=== PATIENT | female | born 1965 | race Caucasian/White ===

== ENCOUNTER 2022-06-03 13:59 | Inpatient (IN) | payer MEDICARE ==
[~2022-06-03] VITALS: Ht 157.5 cm; Wt 70.3 kg
[2022-06-03 14:45] LABS: HEMOGLOBIN 12.8 gm/dl (12.3-15.3); RED BLOOD COUNT 4.38 M/UL (4.00-5.10)
[2022-06-03 15:07] LABS: BUN/CREATININE RATIO 9 (0-10)
[2022-06-03] MEDS ORDERED: HYDROXYZINE PAM25 MG PO (17:34)
[2022-06-03] MEDS ORDERED: NITROGLYCERIN0.4 MG SL (17:35)
[2022-06-03] MEDS ORDERED: LACTULOSE10 GM/15 M PO (17:35)
[2022-06-03] MEDS ORDERED: TIZANIDINE HCL4 MG PO (17:35)
[2022-06-03] MEDS ORDERED: AMLODIPINE BESY10 MG PO (17:36)
[2022-06-03] MEDS ORDERED: PROTONIX 40 MG40 M1 PO (17:36)
[2022-06-03] MEDS ORDERED: ATORVASTATIN CA40 MG PO (17:36)
[2022-06-03] MEDS ORDERED: SYNTHROID50 MCG PO (17:36)
[2022-06-03] MEDS ORDERED: ASPIRIN EC81 MG PO (17:37)
[2022-06-03] MEDS ORDERED: SERTRALINE HCL50 MG PO (17:37)
[2022-06-04 04:31] LABS: HEMOGLOBIN 11.7 gm/dl (12.3-15.3); RED BLOOD COUNT 4.02 M/UL (4.00-5.10); WHITE BLOOD COUNT 2.8 K/UL (4.5-11.0)
[2022-06-04 04:50] LABS: BUN/CREATININE RATIO 15 (0-10)
[2022-06-04 13:16] LABS: ADENOVIRUS F 40/41 Not Detected (Negative); ASTROVIRUS Not Detected (Negative); CAMPYLOBACTER Not Detected (Negative); CRYPTOSPORIDIUM Not Detected (Negative); E.COLI 0157 Not Detected (Negative); ENTAMOEBA HISTOLYTICA Not Detected (Negative); ENTEROAGGREGATIVE E.COLI (EAEC Not Detected (Negative); ENTEROPATHOGENIC E.COLI (EPEC) Not Detected (Negative); ENTEROTOXIGENIC E.COLI (ETEC) Not Detected (Negative); GIARDIA LAMBLIA Not Detected (Negative); NOROVIRUS GI/GII Not Detected (Negative); PLESIOMONAS SHIGELLOIDES Not Detected (Negative); ROTOVIRUS A Not Detected (Negative); SALMONELLA Not Detected (Negative); SAPOVIRUS Not Detected (Negative); SHIG/ENTEROINVAS.ECOLI (EIEC) Not Detected (Negative); SHIGA-LIK TOX.PRO.E.COLI (STEC Not Detected (Negative); VIBRIO Not Detected (Negative); VIBRIO CHOLERAE Not Detected (Negative); YERSINIA ENTEROCOLITICA Not Detected (Negative)
[2022-06-04] MEDS ORDERED: HYDROCODON-ACE1 EAC4 PO (15:17)
[2022-06-04] MEDS ORDERED: LEVOFLOXACIN500 MG PO (15:17)
[2022-06-04] MEDS ORDERED: CLEOCIN HCL300 MG PO (15:17)
[2022-06-05 04:51] LABS: HEMOGLOBIN 11.7 gm/dl (12.3-15.3); RED BLOOD COUNT 4.05 M/UL (4.00-5.10); WHITE BLOOD COUNT 3.4 K/UL (4.5-11.0)
[2022-06-05 05:53] LABS: BUN/CREATININE RATIO 16 (0-10)
[2022-06-05 14:14] LABS: LYME TOTAL ANTIBODY EIA Negative (Negative)
[2022-06-06 04:35] LABS: HEMOGLOBIN 12.1 gm/dl (12.3-15.3); RED BLOOD COUNT 4.19 M/UL (4.00-5.10); WHITE BLOOD COUNT 3.4 K/UL (4.5-11.0)
[2022-06-06 05:00] LABS: BUN/CREATININE RATIO 14 (0-10)
== END 2022-06-07 10:17 | disposition home or self-care (01) | DRG 242 ==
LOC: ER1 13:59 → M/S 16:19 → CCU 16:19 → CDU 16:19 → CCU 19:51 → M/S 06-06 13:48
PROVIDERS: Internal Medicine Critical Care Medicine; Physician Assistant; Preventive Medicine Occupational Medicine; ADMIT Internal Medicine
PROC: 0JH606Z Insertion of Pacemaker, Dual Chamber into Chest Subcutaneous Tissue and Fascia, Open Approach (ICD-10-PCS; principal; 2022-06-04)
PROC: 02H63JZ Insertion of Pacemaker Lead into Right Atrium, Percutaneous Approach (ICD-10-PCS; 2022-06-04)
PROC: 02HK3JZ Insertion of Pacemaker Lead into Right Ventricle, Percutaneous Approach (ICD-10-PCS; 2022-06-04)
PROC: B24BZZZ Ultrasonography of Heart with Aorta (ICD-10-PCS; 2022-06-04)
DX: I49.5 Sick sinus syndrome (principal); U07.1 COVID-19; E03.9 Hypothyroidism, unspecified; I10 Essential (primary) hypertension; E87.6 Hypokalemia; E78.5 Hyperlipidemia, unspecified; Z96.651 Presence of right artificial knee joint; Z96.662 Presence of left artificial ankle joint; D69.6 Thrombocytopenia, unspecified; A08.4 Viral intestinal infection, unspecified; D72.819 Decreased white blood cell count, unspecified; F12.10 Cannabis abuse, uncomplicated; M48.54XS Collapsed vertebra, not elsewhere classified, thoracic region, sequela of fracture; B18.2 Chronic viral hepatitis C; M79.7 Fibromyalgia; Z86.718 Personal history of other venous thrombosis and embolism; I25.2 Old myocardial infarction; Z95.5 Presence of coronary angioplasty implant and graft; Z90.49 Acquired absence of other specified parts of digestive tract; Z90.710 Acquired absence of both cervix and uterus; Z98.890 Other specified postprocedural states; Z88.8 Allergy status to other drugs, medicaments and biological substances; Z82.49 Family history of ischemic heart disease and other diseases of the circulatory system; Z88.0 Allergy status to penicillin; Z79.899 Other long term (current) drug therapy; Z79.82 Long term (current) use of aspirin
CPT/HCPCS: ECHO; 0240U; 33208; 36415; 71045; 80048; 80053; 80307; 81001; 82550; 82553; 83735; 83880; 84132; 84439; 84443; 84484; 85025; 85027; 85379; 85652; 86140; 86618; 87449; 87507; 93005; 93306; 99152; 99153; 99285; C1785; C1898; J1644; J2250; J2270; J2405; J3010; J3370; J7040; J7050; J7070; Q0177; Q9967